=== PATIENT | male | born 1975 | race Two or more races ===

== ENCOUNTER 2019-07-30 09:48 | Outpatient (CLI) | payer OTHER | END 2019-07-30 10:15 | disposition home or self-care (01) | LOC: SONOGRAMA 09:48 | PROVIDERS: ATTEND Physical Medicine & Rehabilitation | DX: M25.512 Pain in left shoulder (principal); M25.511 Pain in right shoulder ==

== ENCOUNTER 2019-12-10 14:33 | Outpatient (CLI) | payer OTHER | END 2019-12-10 14:37 | disposition home or self-care (01) | LOC: RAD 14:33 | PROVIDERS: ATTEND Internal Medicine | DX: L08.89 Other specified local infections of the skin and subcutaneous tissue (principal); L03.116 Cellulitis of left lower limb ==

== ENCOUNTER 2024-06-08 12:17 | Outpatient (CLI) | payer OTHER ==
[~2024-06-08 12:17] MED LIST: DICLOFENAC POTA50 MG PO; METHOCARBAMOL750 MG PO
== END 2024-06-08 12:23 | disposition home or self-care (01) ==
LOC: RAD 12:17
PROVIDERS: ATTEND Radiology Diagnostic Radiology
DX: M54.2 Cervicalgia (principal); M25.511 Pain in right shoulder